=== PATIENT | female | born 1975 | race Caucasian/White ===

== ENCOUNTER 2020-04-17 12:28 | Outpatient (CLI) | payer OTHER, SELFPAY ==
--- NOTE | ~2020-04-17 | MM_ITS ---
EXAMINATION: MM diagnostic cherise LT w michi HISTORY: Six-month follow-up for probably benign left breast calcifications TECHNIQUE: Craniocaudal, mediolateral, and mediolateral oblique 3-D tomosynthesis images of the left breast were performed and synthetic 2-D images were generated. Magnification views are also obtained. CAD analysis was submitted and interpreted. COMPARISON: 05/31/2019, 05/15/2019, 05/02/2018, 04/28/2018 BREAST PARENCHYMAL COMPOSITION: The breasts are extremely dense, which lowers the sensitivity of mamm ography. FINDINGS: There are grouped calcifications in the posterior third of the upper breast at the 12:00 lo cation which demonstrate an amorphous appearance on the craniocaudal view and linear configuration on the mediolateral view, consistent with milk of calcium. These have not significantly changed since 2017 comparison mammogram. There is no suspicious mass, calcification, or architectural distortion . IMPRESSION: 1. Benign left breast calcifications. No mammographic evidence of malignancy. 2. Routine screening mammography is recommended, due on the right in one month. BI-RADS Category 2: Benign finding(s). Reviewed, dictated and finalized at location A.
== END 2020-04-17 12:29 | disposition home or self-care (01) ==
LOC: ANHIMG 12:30
PROVIDERS: PCP Physician Assistant
DX: R92.8 Other abnormal and inconclusive findings on diagnostic imaging of breast (principal)
CPT/HCPCS: 77061; 77065; G0279

== ENCOUNTER 2020-08-25 11:16 | Outpatient (CLI) | payer OTHER, SELFPAY ==
--- NOTE | ~2020-08-25 | MMUS_ITS ---
EXAMINATION: MM diagnostic cherise BI w michi, US breast RT limited HISTORY: Palpable lump of the right breast TECHNIQUE: Craniocaudal, mediolateral, and mediolateral oblique 3-D tomosynthesis images of the breas ts were performed and synthetic 2-D images were generated. CAD analysis was submitted and interpreted . High resolution limited right breast ultrasound was performed. COMPARISON: 05/15/2019, 04/11/2018 BREAST PARENCHYMAL COMPOSITION: The breasts are extremely dense, which lowers the sensitivity of mamm ography. FINDINGS: MAMMOGRAPHIC FINDINGS: Right breast: No mammographic correlate is identified for the reported palpable abnormality of concer n. There is no suspicious mass, calcification, or architectural distortion. Left breast: There are stable calcifications in the upper outer quadrant of the left breast. No suspi cious mass or architectural distortion is identified. ULTRASOUND: There is an approximately 6 mm x 5 mm oval, circumscribed, parallel, isoechoic mass at the 12:00 loca tion near the nipple corresponding to the palpable abnormality which likely reflects clustered microc ysts. There is posterior acoustic enhancement and no internal vascularity. IMPRESSION: 1. Probably benign right breast mass. 2. Recommend 6 month follow-up right diagnostic mammogram and ultrasound. BI-RADS category 3, probably benign findings. Reviewed, dictated and finalized at location A. ECTION TELLER IMPRESSION: 1. Probably benign right breast mass. 2. Recommend 6 month follow-up right diagnostic mammogram and ultrasound. BI-RADS category 3, probably benign findings.
== END 2020-08-25 11:17 | disposition home or self-care (01) ==
LOC: ANHIMG 11:21
PROVIDERS: PCP Physician Assistant
DX: N63.15 Unspecified lump in the right breast, overlapping quadrants (principal); R92.1 Mammographic calcification found on diagnostic imaging of breast
CPT/HCPCS: 76642; 77062; 77066; G0279

== ENCOUNTER 2021-03-20 11:51 | Outpatient (CLI) | payer OTHER, SELFPAY ==
--- NOTE | ~2021-03-20 | MMUS_ITS ---
EXAMINATION: MM diagnostic cherise RT w michi, US breast RT limited HISTORY: Six-month follow-up of 6 x 5 mm oval circumscribed parallel isoechoic mass at 12:00 near nip ple TECHNIQUE: ML, MLO and craniocaudal 3-D tomosynthesis images of the right breast were performed and s ynthetic 2-D images were generated. CAD analysis was submitted and interpreted. High resolution targe leandra 12:00 right breast ultrasound was performed. COMPARISON: 08/25/2020 bilateral diagnostic digital mammogram and limited right breast ultrasound exa mination BREAST PARENCHYMAL COMPOSITION: The breasts are extremely dense, which lowers the sensitivity of mamm ography. FINDINGS: MAMMOGRAPHIC FINDINGS: No suspicious mass or architectural distortion, malignant calcification, skin thickening or retractio n or significant new or developing density is detected. ULTRASOUND: 12:00 near nipple: 4 x 5.4 mm circumscribed hypoechoic lesion with through transmission, with no inte rnal vascularity, not significantly changed since 08/25/2020. IMPRESSION: 1. No mammographic evidence of malignancy 2. Routine mammographic screening is recommended BI-RADS Category 2: Benign finding(s). Reviewed, dictated and finalized at location A. IMPRESSION: 1. No mammographic evidence of malignancy 2. Routine mammographic screening is recommended BI-RADS Category 2: Benign finding(s).
== END 2021-03-20 11:52 | disposition home or self-care (01) ==
PROVIDERS: PCP Physician Assistant
DX: N63.25 Unspecified lump in the left breast, overlapping quadrants (principal)
CPT/HCPCS: 76642; 77061; 77065; G0279

== ENCOUNTER 2022-05-12 08:53 | Outpatient (CLI) | payer OTHER, SELFPAY ==
--- NOTE | ~2022-05-12 | MM_ITS ---
EXAMINATION: MM screening [facility] BI w michi HISTORY: Screening TECHNIQUE: Craniocaudal and mediolateral oblique 3-D tomosynthesis images were obtained and synthetic 2-D images were generated. CAD analysis was submitted and interpreted. COMPARISON: Comparison to multiple prior studies sequentially, with oldest reviewed study dated 05/02. BREAST PARENCHYMAL COMPOSITION: The breasts are heterogenously dense, which may obscure small masses FINDINGS: Stable benign-appearing calcifications in the upper inner quadrant of the left breast. Ther e is no evidence of suspicious mass, calcification, or architectural distortion to suggest malignancy in either breast. There has been no suspicious interval change. IMPRESSION: 1. No mammographic evidence of malignancy. 2. Recommend routine screening mammography in one year. BI-RADS Category 2: Benign finding(s). Reviewed, dictated and finalized at location A.
== END 2022-05-12 08:54 | disposition home or self-care (01) ==
LOC: ANHIMG 08:56
PROVIDERS: PCP Physician Assistant
DX: Z12.31 Encounter for screening mammogram for malignant neoplasm of breast (principal)
CPT/HCPCS: 77063; 77067

== ENCOUNTER 2023-08-19 11:59 | Outpatient (CLI) | payer OTHER, SELFPAY ==
--- NOTE | ~2023-08-19 | MM_ITS ---
EXAMINATION: MM screening [facility] BI w michi HISTORY: Screening TECHNIQUE: Craniocaudal and mediolateral oblique 3-D tomosynthesis images were obtained and synthetic 2-D images were generated. CAD analysis was submitted and interpreted. COMPARISON: Comparison to multiple prior studies sequentially, with oldest reviewed study dated 03/2019. BREAST PARENCHYMAL COMPOSITION: The breasts are extremely dense, which lowers the sensitivity of mamm ography FINDINGS: Stable benign-appearing clustered left breast calcifications. There is no evidence of suspi cious mass, calcification, or architectural distortion to suggest malignancy in either breast. There has been no suspicious interval change. IMPRESSION: 1. No mammographic evidence of malignancy. 2. Recommend routine screening mammography in one year. BI-RADS Category 2: Benign finding(s). Reviewed, dictated and finalized at location A. ER HELPER
== END 2023-08-19 12:00 | disposition home or self-care (01) ==
LOC: ANHIMG 12:06
PROVIDERS: PCP Physician Assistant; Visit Provider Urology Pediatric Urology
DX: Z12.31 Encounter for screening mammogram for malignant neoplasm of breast (principal)
CPT/HCPCS: 77063; 77067

== ENCOUNTER 2024-10-04 07:36 | Outpatient (CLI) | payer OTHER, SELFPAY ==
--- NOTE | ~2024-10-04 | MM_ITS ---
EXAMINATION: MM screening cherise BI w michi HISTORY: Screening TECHNIQUE: Craniocaudal and mediolateral oblique 3-D tomosynthesis images were obtained and synthetic 2-D images were generated. CAD analysis was submitted and interpreted. COMPARISON: 08/19/2023 and dating back to 05/15/2019 BREAST PARENCHYMAL COMPOSITION: The breasts are extremely dense, which lowers the sensitivity of mamm ography. FINDINGS: Bulky and punctate calcifications within the upper outer quadrant of the left breast, incre asing in quantity since 2023 which magnification views are suggested. Otherwise stable parenchymal pattern without architectural distortion, discrete masses or significant asymmetry. IMPRESSION: Bulky and punctate calcifications within the upper outer quadrant of the left breast, increasing in q uantity since 2023 which magnification views are suggested. BI-RADS Category 0: Incomplete: Needs additional imaging evaluation. Reviewed, dictated and finalized at location A. S DEALER IMPRESSION: Bulky and punctate calcifications within the upper outer quadrant of the left b reast, increasing in quantity since 2023 which magnification views are suggeste d. BI-RADS Category 0: Incomplete: Needs additional imaging evaluation.
== END 2024-10-04 07:37 | disposition home or self-care (01) ==
PROVIDERS: PCP Internal Medicine
DX: Z12.31 Encounter for screening mammogram for malignant neoplasm of breast (principal); R92.8 Other abnormal and inconclusive findings on diagnostic imaging of breast
CPT/HCPCS: 77063; 77067

== ENCOUNTER 2024-11-07 08:25 | Outpatient (CLI) | payer OTHER, SELFPAY ==
--- NOTE | ~2024-11-07 | MMUS_ITS ---
EXAMINATION: MM diagnostic cherise LT w michi, US breast LT limited HISTORY: Left breast calcifications TECHNIQUE: Additional 3-D tomosynthesis images of the left breast were performed and synthetic 2-D im ages were generated. CAD analysis was submitted and interpreted. High resolution Limited left breast ultrasound was performed. COMPARISON: Comparison to multiple prior studies sequentially, with oldest reviewed study dated 06/2020 BREAST PARENCHYMAL COMPOSITION: Dense: The breasts are extremely dense, which lowers the sensitivity of mammography. FINDINGS: MAMMOGRAPHIC FINDINGS: There are clustered coarse and layering calcifications in the upper inner quadrant of the left breast , posterior third. The punctate calcifications layer on MLO and mediolateral views, consistent with m ilk of calcium. These calcifications are not significantly changed dating back to 04/17/2020. ULTRASOUND: Limited left breast ultrasound: At 12:00, 2 cm from the nipple there is a 3 mm cyst. At 1:00, 3 cm fr om the nipple there is a 4 mm cyst. At 3:00, 3 cm from the nipple there is a 4 mm cyst. No suspicious masses to suggest malignancy. IMPRESSION: 1. No evidence for malignancy in the left breast. Benign findings 2. Routine yearly screening mammogram and regular clinical breast examination are recommended. BI-RADS Category 2: Benign finding(s). Reviewed, dictated and finalized at location A. TRUCK DRIVER IMPRESSION: 1. No evidence for malignancy in the left breast. Benign findings 2. Routine yearly screening mammogram and regular clinical breast examination are recommended. BI-RADS Category 2: Benign finding(s).
== END 2024-11-07 08:26 | disposition home or self-care (01) ==
LOC: MICIMG 08:26
PROVIDERS: PCP Internal Medicine
DX: R92.8 Other abnormal and inconclusive findings on diagnostic imaging of breast (principal)
CPT/HCPCS: 76642; 77061; 77065; G0279

== ENCOUNTER 2024-11-21 08:55 | Outpatient (CLI) | payer OTHER, SELFPAY ==
--- NOTE | ~2024-11-21 | US_ITS ---
EXAMINATION: US soft tissue head and neck DATE: 11/21/2024 09:19 INDICATION: Localized swelling, mass or lump at the right-sided the sternal notch. TECHNIQUE: Multiple grayscale and Doppler ultrasound images of the abdomen were obtained. COMPARISON: None FINDINGS: There appears to be asymmetric mild synovitis at the right sternoclavicular joint relative to the lef t sternoclavicular joint. No ankle joint effusion or asymmetric hyperemia on color Doppler. No other abnormal masses or fluid collections identified. IMPRESSION: 1. Nonspecific mild asymmetric synovitis without joint effusion or associated hyperemia at the right sternoclavicular joint relative to the left. Reviewed, dictated and finalized at location A. S SERVICE TECHNICIAN IMPRESSION: 1. Nonspecific mild asymmetric synovitis without joint effusion or associated h yperemia at the right sternoclavicular joint relative to the left.
--- NOTE | ~2024-11-21 | US_ITS ---
EXAMINATION: US soft tissue abdomen DATE: 11/21/2024 09:20 INDICATION: Possible supraumbilical ventral hernia TECHNIQUE: Multiple grayscale and Doppler ultrasound images of the supraumbilical anterior abdominal wall region of concern were obtained. COMPARISON: None FINDINGS: There is a 1.6 x 1.6 x 0.3 cm hypoechoic fat-containing ventral hernia at the region of concern which extends through a 1.5 x 3 mm orifice. There are some peristalsing non herniated bowel immediately de ep to the hernia. IMPRESSION: 1. Small fat-containing ventral hernia at the region of concern. Reviewed, dictated and finalized at location A. CAL CLAIMS EXAMINER
== END 2024-11-21 08:56 | disposition home or self-care (01) ==
PROVIDERS: Visit Provider Clinical Nurse Specialist
DX: K43.9 Ventral hernia without obstruction or gangrene (principal); M65.88 Other synovitis and tenosynovitis, other site
CPT/HCPCS: 76536; 76705

== ENCOUNTER 2025-02-13 09:02 | Outpatient (CLI) | payer OTHER, SELFPAY ==
--- NOTE | ~2025-02-13 | MR_ITS ---
EXAMINATION: MR clavicle RT wo con DATE: 02/13/2025 09:58 INDICATION: Swelling along the medial right clavicle. TECHNIQUE: Magnetic resonance imaging (MRI) of the right clavicle was performed without intravenous c ontrast. A marker was placed over the region of swelling. Sequences included large [id number] axi al and coronal T1-weighted FSE including the bilateral clavicles and smaller [id number] axial, sag ittal and coronal T1-weighted FSE, T1-weighted FS FSE and fluid sensitive FSE STIR. COMPARISON: None. FINDINGS: Bone alignment is normal. There is normal bone marrow signal throughout with no reactive edema, fract ure or pathologic marrow replacing process. The bilateral sternoclavicular and acromioclavicular join ts appear normal and symmetric with no joint effusions. No abnormal masses or fluid collections ident ified. No pathologically enlarged supraclavicular, superior mediastinal or lower jugular chain lympha denopathy. The brachial plexus appears normal and symmetric on the larger [id number] axial and cor onal images. No asymmetric soft tissue swelling or soft tissue edema appreciated at the left right chandra praclavicular regions. IMPRESSION: 1. Normal study. No soft tissue edema, pathologically enlarged lymphadenopathy or abnormal masses or fluid collections identified. Reviewed, dictated and finalized at location A.
== END 2025-02-13 09:03 | disposition home or self-care (01) ==
LOC: GOSHIMG 09:02
PROVIDERS: PCP Clinical Nurse Specialist; Visit Provider Clinical Nurse Specialist
DX: M79.89 Other specified soft tissue disorders (principal)
CPT/HCPCS: 73218

== ENCOUNTER 2025-10-09 08:20 | Outpatient (CLI) | payer OTHER, SELFPAY ==
--- NOTE | ~2025-10-09 | MM_ITS ---
EXAMINATION: MM screening [facility] BI w michi HISTORY: Screening TECHNIQUE: Craniocaudal and mediolateral oblique 3-D tomosynthesis images were obtained and synthetic 2-D images were generated. CAD analysis was submitted and interpreted. COMPARISON: October,. Studies from 2023, 2022, and 2021. BREAST PARENCHYMAL COMPOSITION: The breast tissue is extremely dense, which lowers the sensitivity of mammography. FINDINGS: There are findings consistent with the known breast cysts. No suspicious masses are seen. There are no suspicious calcifications. Posterior, medial calcifications are again shown to mostly layer, consistent with milk of calcium in microcysts. This is unchanged. No unexplained architectural distortion is seen. There are no skin or nipple abnormalities identified. There is no adenopathy seen on the images submitted. IMPRESSION: No mammographic evidence to suggest malignancy is seen. The patient may return to screening mammography as per ACR guidelines. BI-RADS 2 - Benign. Reviewed, dictated and finalized at location C. TRAINING SPECIALIST
--- OUTSIDE RECORDS SUMMARY | 2025-10-09 08:27 | XMS_ITS | Clinical Summary ---
Author Organization [address] Address [address] [place] [address] Care Team Providers Care Breakdown Worker Name Role Phone Tisha Hester NP Primary Care Provider [phone] Allergies No known active allergies Medications estradioL (ESTRACE) 1 mg tablet Take 1 tablet (1 mg total) by mouth daily 90 tablet 3 5 Active progesterone (PROMETRIUM) 100 mg capsule Take 1 capsule (100 mg total) by mouth daily Take by mouth nightly 90 capsule 3 5 Active valACYclovir (VALTREX) 500 mg tabletIndications: Encounter for gynecological examination (general) (routine) without abnormal findings Take 1 tablet (500 mg total) by mouth daily 90 tablet 3 5 06/02/20 26 Active Active Problems Problem Noted Date Diagnosed Date Routine gynecological examination 06/07/2025 Hormone replacement therapy (HRT) 06/07/2025 Medical History Medical History Date Comments Perimenopause Family History Medical History Relation Name Comments Ovarian cancer Other Grandma Relation Name Status Comments Other Grandma Social History Tobacco Use Types Packs/Day Years Used Date Smoking Tobacco: Never Smokeless Tobacco: Never Tobacco Cessation:Counseling Given: Not Answered Alcohol Use Standard Drinks/Week Comments Yes 0 (1 standard drink = 0.6 oz pur e alcohol) AUDIT-C Answer Date Recorded Q1: How often do you have a drink containing alc ohol? Monthly or less 06/07/2025 Q2: How many drinks containi ng alcohol do you have on a typical day when you are drinking? 1 or 2 06/07/2025 Q3: How often do you have si x or more drinks on one occasion? Never 06/07/2025 Comments Unknown Sex and Gender Information Value Date Recorded Sex Assigned at Not on file Legal Sex Female 12:[address]NA[address] Gender Identity Not on file Sexual Orientation Not on file Obstetrics History Para Term AB IAB SAB Ectopic Multiple Livin g Live Births 2 2 2 2 2 Date Outcome GA Total Labor Labor/2nd/3rd Weight Sex Type Anes PTL [place] A1 A5 Name Clin 2004 Term F C-Sec tion Living [facility] 2007 Term F C-Sec tion Living [place] Last Filed Vital Signs Vital Sign Reading Time Taken Comments Blood Pressure 110/70 06/07/2025 11:43 AM CDT Pulse 68 10/26/2024 2:[address] MANAGER Temperature 36.6 C (97.9 F) 10/26/2024 2:[address] MANAGER Respiratory Rate 20 10/26/2024 2:[address] MANAGER Oxygen Saturation 99% 10/26/2024 2:[address] MANAGER Inhaled Oxygen Concentration - - Weight 56.2 kg (124 lb) 06/07/2025 11:43 AM CDT Height 167.6 cm (5' 6) 06/07/2025 11:43 AM CDT Body Mass Index 20.01 06/07/2025 11:43 AM CDT Plan of Treatment Health Maintenance Due Date Last Done Comments Breast Cancer Screening-Mammogram 1976 Cervical Cancer Screening 1976 Colon Cancer Screening-Colonoscopy 1976 Depression Screening 1976 Hepatitis C Screening 1976 DTaP/Tdap/Td Vaccine (1 - Tdap) 1987 Hepatitis B Screening 1994 Covid-19 Vaccine ( season) 2025 07/15/2023, 07/17/2022, 09/10/2021, Additional history exists Influenza Vaccine (#1) 2025 , 07/15/2023, 07/17/2022, Additional history exists Regular Well Visit/Exam 18-64 06/07/2026 06/07/2025, 05/31/2024 Pneumococcal vaccine <65 Aged Out No longer eligible based on patient's age to complete this topic Insurance Member Subscriber Plan / Payer ( fective 2024-Present) Name:Akilah Shaikh Relation to Subscriber:Spouse Name:Sarath Shaikh Date of :1972 Address: [address] [place] [address] Payer ID:[id number] (NAIC) Type:[facility] H[facility]/PPO Address: [place] [phone] Care Teams Breakdown Worker Relationship Specialty Start Date End Date Tisha Hester NP PCP - General Cardiovascular Disease 10/26/24
--- OUTSIDE RECORDS SUMMARY | 2025-10-09 08:28 | XMS_ITS | Data Portability ---
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 Patient will come back in a year unless there are new symptoms. [email or web address] Not available 01/04/2025 09:15:16 Plan of Treatment Reminders Order Date Submit Date Provider Last Modified By Organization Details Last Modified Time Details Appointments None recorded. Lab None recorded. Referral None recorded. Procedures None recorded. Surgeries None recorded. Imaging None recorded. Medication Orders estradiol 1 mg tablet 2024 025 [id number] [address] [place], [address], 5 09:49:55 progesteron e micronized 100 mg capsule 2024 025 [facility] [id number] [facility], [address] [place], [address], 5 09:49:56 progesteron e micronized 100 mg capsule 2023 024 [facility] [id number] [facility], [address] [place], [address], 4 10:19:38 estradiol 1 mg tablet 2023 024 [facility] [id number] [facility], [address] , [place], [address], 4 13:10:50 Patient TargetsNo targets recorded. Patient InstructionsNo instructions recorded. Reason for Referral None Reported. Procedures Surgical History Date Name Laterality Status Provider Name and Address Organization Details Recorded Time 5 Date of Last Mammogram completed [facility] 01/04/2025 09:37:04 4 Date of Last Pap Smear completed [facility] 01/04/2025 09:36:55 3 completed [facility] 12/10/2023 09:36:15 3 Date of Last Colonoscopy completed [facility] 12/10/2023 09:36:15 Caesarean Section completed [facility] 12/10/2023 09:36:25 Imaging Results None recorded. Procedure Notes None recorded. Medical Equipment None Reported. Allergies No known drug allergies Medications Name Sig Start Date Stop Date Status Note LastModified by Organization Details LastModified Time valacyclovir 500 mg tablet TAKE 1 TABLET BY MOUTH EVERY DAY FOR 90 DAYS active Not Available Not Available No t Available estradiol 1 mg tablet Take 1 tablet every day by oral route. 2024 active Not Available Not Available Not Avai lable naproxen 500 mg tablet TAKE 1 TABLET BY MOUTH TWICE A DAY 01/04 completed Not Available Not Available Not Available progesterone micronized 100 mg capsule TAKE 1 CAPSULE BY MOUTH EVERY DAY 2024 active Not Available Not Available Not Avai lable Vitals Date Recorded Body height Body mass index (BMI) Body weight Systolic And Diastolic Provider Name and Address Organization Details Last Updated DateTime 12/10/2023 167.64 cm 20.3 kg/m2 48307.64 g 116/71 mm[Hg] [facility] 12/10/2023 09:42:20 Date Recorded Body height Body mass index (BMI) Body weight Systolic And Diastolic Provider Name and Address Organization Details Last Updated DateTime 01/04/2025 167.64 cm 20.1 kg/m2 65550.89 g 122/77 mm[Hg] Teri Armendariz [facility] 01/04/2025 09:36:28 Social History Question Answer Notes LastModified by Organizat ion Details LastModified Time Tobacco Smoking Status Never Smoker Nicol Yates panfilo, [facility] 12/10/2023 09:37:55 How Many Years Have You Consumed Alcohol? 26 Information not available 12/10/2023 Are You Blind Or Do You Have Difficulty Seeing? No Information n ot available 12/10/2023 What Is Your Level Of Caffeine Consumption? Moderate Information not available 12/10/2023 How Much Tobacco Do You Chew? None Information not available 12/10/2023 In The 14 Days Before Symptom Onset, Have You Had Close Contact With A Laboratory-confirm ed COVID-19 While That Case Was Ill? No Information n ot available 12/10/2023 In The 14 Days Before Symptom Onset, Have You Had Close Contact With A Person Who Is Under Investigation For COVID-19 While That Person Was Ill? No Information not available 12/10/2023 Have You Been To An Area Known To Be High Risk For COVID-19? No Information not available 12/10/2023 Are You Deaf Or Do You Have Serious Difficulty Hearing? No Information not available 12/10/2023 What Type Of Diet Are You Following? REGULAR Information n ot available 12/10/2023 What Is The Highest Grade Or Level Of School You Have Completed Or The Highest Degree You Have Received? [id number] Information not available 12/10/2023 Are There Any Guns Present In Your Home? Yes Information not available 12/10/2023 Do You Use Protection During Sex? No Information not available 12/10/2023 Do You Use Your Seat Belt Or Car Seat Routinely? Yes Information not available 12/10/2023 Do You Have Smoke And Carbon Monoxide Detectors In Your Home? Yes Information not available 12/10/2023 How Much Tobacco Do You Smoke? No Information not available 12/10/2023 Do You Use Sunscreen Routinely? Yes Information not available 12/10/2023 Have You Used IV Drugs? No Information not available 12/10/2023 Do You Have Difficulty Walking Or Climbing Stairs? No Information not available 12/10/2023 Sex: Unknown Functional Status Question Answer Note LastModified by Organizat ion Details LastModified Time Do you use any illicit or recreational drugs? No Information not available 12/10/2023 What is your level of alcohol consumption? Moderate Information not available 12/10/2023 Are you able to walk independently without assistance or assistive devices? YESWOREST Information not available 12/10/2023 Are you able to care for yourself independently? 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 No Information not available 12/10/2023 What is your exercise level? Heavy Information not available 12/10/2023 Mental Status Question Answer Note LastModified by Organization D etails LastModified Time Do you feel stressed (tense, restless, nervous, or anxious, or unable to sleep at night)? [id number] Information not available 12/10/2023 Family History Nothing Reported. Medical History Condition Response Allergies (Food, seasonal, environmental ) N Other N Drug/Latex Allergies/Reactions N Breast Cancer N Blood Transfusion N Lung Disease N Dermatologic Disorders N Defects or Inherited Disease N Breast Problem N Gestational Diabetes N Hematologic disorders N Anesthesia Complications N History of STI Y Deep Vein Thrombosis N Polycystic ovary syndrome N Anxiety Disorder N Autoimmune disease N Arthritis N Polyps N Infertility N History of abnormal pap N Acid Reflux (GERD) N Cancer N Varicosities N Stroke N Neurologic/Epilepsy N Endometriosis N High Cholesterol N Headaches N Fibromyalgia N Kidney Disease N Heart Problems N Thyroid Problems N Kidney or Bladder Problems N GI Problems N Eating Disorder N Anemia N Art (IVF or FET) N Psychiatric Illness N Ovarian Cancer N Diabetes N Pulmonary (TB, Asthma) N Hepatitis/Liver Disease N No Past Medical History N Eczema N Urinary Tract Infection N Abuse/Domestic Violence N Asthma N Trauma/Violence N Depression/ depression N Heart Disease N Pre-Eclampsia N Hypertension N Osteoporosis N Thrombophilias N Gynecological History Statement/Question Response Date of Last Mammogram 10/10/2024 Flow Light Date of LMP 12/08/2024 N Was last menstrual period normal N STIs/STDs Yes Date of Last Colonoscopy 10/24/2022 Partner Vasectomy Desired Control Method Partner Vas ectomy On BCP's at Conception? N HPV Vaccine N Duration of Flow (days) 4 Current Control Method Partner Vas ectomy Age at First Child 30 Are cycles usually normal Y Frequency of Cycle (Q days) 23 Sexually Active? Y Menses Monthly Y Age of first menstrual cycle 14 Date of Last Pap Smear 07/10/2024 Sexual Problems? N LMP Definite 10/24/2022 N 10/10/2012 Obstetrics History GPAL:G 2 P 2 0 0 2 Type Value Full Term 2 Living 2 Total 2 Immunizations Vaccine Type Date Status Note Provider Harpreet downing and Address Organization Details Recorded Time Tdap 12/26/2024 [facility] 01/04/2025 09:30:06 Past Encounters Encounter ID Performer Location Encounter Start Date Encounter Closed Date Diagnosis/Indication Diagnosis SNOMED-CT Code Diagnosis ICD10 Code Diagnosis IMO Codes Diagnosis Note [id number] Daniel Patterson MD [place] [address] [address] 12/10/2023 09:32:05 12/10/2023 10:30:07 Menopausal syndrome 150400583 N95.9 48-year-ol d female with severe menopausal symptoms. She is night sweats where she soaks her sheets. Her sleep is poor. Is affecting her mood. She has hot flashes during the day that caused her hair to get wet. Is affecting her quality of life and activities of daily living with the fatigue. Talked about treatments . Patient would like to consider hormone replacemen t therapy. We talked about the risks benefits, and alternativ es to hormone replacemen t therapy. We agreed prescribe hormones. We talked about different forms of estrogen and progestero ne. We agreed to estradiol and micronized progestero ne. 1 mg and 100 mg respective ly. We spent 20 minutes face-to-fa ce. More than 50% was counseling . She will follow-up as needed. [id number] BROOK[place]N Felix [place] [address] [address] 01/04/2025 09:29:12 01/04/2025 11:18:01 Perimenopausal state [id number] 24736 Z78.0 Doing well on current therapy and desires to continuere fills sent x 12 months, r/b/a reviewedde nies any contraindi cations to this therapyRTC in 1 yr or sooner if needed Time spent in visit is a total of 22 mins with at least 50% of visit consisting of counseling and review of plan of care. Menopausal syndrome 1237 [id number] N95.9 Health Concerns Section Related Observation LastModified by Organization Detai ls LastModified Time None Recorded Concern Status LastModified by Organization Details LastModified Time None Recorded Advance Directives Directive None Recorded Payers Insurance Date Sequence Insurance Name Policy Number Policy Gibbs Covered Member ID Gibbs Member ID Guarantor Name 01/07/2025 1 [id number] Sarath Shaikh [id number] Akilah Shaikh 12/21/2024 1 [facility] [id number] Sarath Shaikh [id number] Akilah Shaikh Notes Date Note Type Note Provider Name and Address Organization Details Recorded Time 4 text/html MenopauseReported by Patient 48-year-old female with severe menopausal symptoms. She is night sweats where she soaks her sheets. Her sleep is poor. Is affecting her mood. She has hot flashes during the day that caused her hair to get wet. Is affecting her quality of life and activities of daily living with the fatigue. Talked about treatments. Patient would like to consider hormone replacement therapy. We talked about the risks benefits, and alternatives to hormone replacement therapy. We agreed prescribe hormones. We talked about different forms of estrogen and progesterone. We agreed to estradiol and micronized progesterone. 1 mg and 100 mg respectively. We spent 20 minutes [id number]. More than 50% was counseling. She will follow-up as needed. Daniel Patterson MD [address], [place], [address], [facility] 12/10/2023 10:29:01 5 text/html 49yo perimenopausal femalepresents for med checkon estradiol 1mg and prometrium 100mg daily for management of hot flashes/night sweatshot flashes improved/night sweats improvedfeeling well, would like to continue this therapymammogram UTD/wnl per pt , ordered through PCPpap UTD, done 07/2024 , wnl per pt BR[place] Felix [address], [place], [address], [facility] 01/04/2025 11:12:15 OBGyn Episode Ob Episode Information Episode Created Date Number of Fetuses Patient Bloodtype Patient rh Status Prepregnancy Weight lbs Domestic Partner Domestic Partner Phone Father Name Scoop Driver Status 12/10/19 24 1 CLOSED Fetus Data First Name Last Name Admitted to NICU Weight (g) Sex Living Outcome Pediatric Complications Fetus ID Race Codes Race Delivery Type 2948.34 [id number] Full Term [id number] Primary Atilio Calculation Initial Atilio Date Initial Exam Date Initial Exam Provider Initial Ultrasound Date Last Menstrual Period Date Ultra Sound Weeks Gestation 0 Eighteen To Twenty Week Atilio Update Ultra Sound Date Fundal Height At Umbil Quickening Date Ultra Sound Latest Weeks Gestation Final Atilio Confirmed By Final Atilio Confirmed Date Final Atilio Date Ultra Sound Latest Days Gestation 0 0 Menstrual History Last Menstrual Date Menses Monthly On Bcp Conception Prior Menses Frequency Hcg Plus Date Menarche Onset Age Delivery Information Delivery Date Delivery Type Labor Anesthesia Weeks Gestation Incision Type Labor Labor Length Hrs Delivered By Post Complications Tubal Sterilization Discharge Date Comments 5 Discharge Information Feeding Method Contraceptive Method Maternal HG B and HCT Levels Ob Episode Information Episode Created Date Number of Fetuses Patient Bloodtype Patient rh Status Prepregnancy Weight lbs Domestic Partner Domestic Partner Phone Father Name Scoop Driver Status 12/10/19 24 1 CLOSED Fetus Data First Name Last Name Admitted to NICU Weight (g) Sex Living Outcome Pediatric Complications Fetus ID Race Codes Race Delivery Type 2863.07 [id number] Full Term [id number] Repeat Atilio Calculation Initial Atilio Date Initial Exam Date Initial Exam Provider Initial Ultrasound Date Last Menstrual Period Date Ultra Sound Weeks Gestation 0 Eighteen To Twenty Week Atilio Update Ultra Sound Date Fundal Height At Umbil Quickening Date Ultra Sound Latest Weeks Gestation Final Atilio Confirmed By Final Atilio Confirmed Date Final Atilio Date Ultra Sound Latest Days Gestation 0 0 Menstrual History Last Menstrual Date Menses Monthly On Bcp Conception Prior Menses Frequency Hcg Plus Date Menarche Onset Age Delivery Information Delivery Date Delivery Type Labor Anesthesia Weeks Gestation Incision Type Labor Labor Length Hrs Delivered By Post Complications Tubal Sterilization Discharge Date Comments 8 Discharge Information Feeding Method Contraceptive Method Maternal HG B and HCT Levels
== END 2025-10-09 08:21 | disposition home or self-care (01) ==
LOC: ANHFOHIMG 08:22
PROVIDERS: PCP Internal Medicine; Visit Provider Clinical Nurse Specialist
DX: Z12.31 Encounter for screening mammogram for malignant neoplasm of breast (principal)
CPT/HCPCS: 77063; 77067